=== PATIENT | female | born 1980 | race Caucasian/White ===

== ENCOUNTER 2021-08-29 23:16 | Emergency (ER) | payer OTHER ==
[~2021-08-29] VITALS: Ht 172.7 cm; Wt 95.5 kg
[2021-08-30] MEDS ORDERED: HYDR-2761 PO ×2 (00:53→01:11)
--- NOTE | 2021-08-30 00:53 | PHYS DOC ---
General Adult EDM: Chief Complaint: BACK PAIN OR INJURY HPI: HPI: Patient is a 40 year old female who presents the ED today complaining of 10 out of 10 bilateral low back pain nonradiating in nature, symptoms began today. 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 She states she has been in the vehicle driving from [place] to [place]. She states it is a 12-hour drive and at some point during the drive she was not able to see it. She states she had to lay down for the rest of the trip. She states she has had similar pain before but not as bad. Patient denies any injuries. Patient denies any loss of bowel/bladder function. (PENG BAIRD APRN) Review of Systems: Review of Systems: Constitutional: Denies fever or chills. [] GI: Denies abdominal pain, nausea, vomiting, bloody stools or diarrhea. [] : Denies dysuria. [] Musculoskeletal: Reports back pain Integument: Denies rash. [] Neurologic: Denies headache, focal weakness or sensory changes. [] Psychiatric: Denies depression or anxiety. [] (PENG BAIRD APRN) Heart Score: C/O Chest Pain: N/A Risk Factors: Risk Factors: DM, Current or recent (<one month) smoker, HTN, HLP, family history of CAD, obesity. Risk Scores: Score 0 - 3: 2.5% MACE over next 6 weeks - Discharge Home Score 4 - 6: 20.3% MACE over next 6 weeks - Admit for Clinical Observation Score 7 - 10: 72.7% MACE over next 6 weeks - Early Invasive Strategies (PENG BAIRD APRN) Physical Exam: PE: Constitutional: Well developed, well nourished, no acute distress, non-toxic appearance. [] Skin: Warm, dry, no erythema, no rash. [] Back: No tenderness, no CVA tenderness. [] Extremities: No tenderness, no cyanosis, no clubbing, ROM intact, no edema. [] Neurologic: Alert and oriented X 3, normal motor function, normal sensory function, no focal deficits noted. [] Psychologic: Affect normal, judgement normal, mood normal. [] (PENG BAIRD APRN) EKG: EKG: [] (PENG BAIRD APRN) Radiology/Procedures: Radiology/Procedures: [] (OLIPENG Morton APRN) Course & Med Decision Making: Course & Med Decision Making Pertinent Labs and Imaging studies reviewed. (See chart for details) This a 40-year-old female patient presented to the ED today complaining of back pain that began today. History of similar back pain, no known injuries. No cauda equina syndrome symptoms. Patient will be given pain relief and discharged. (PENG BAIRD APRN) Dragon Disclaimer: Dragon Disclaimer: This electronic medical record was generated, in whole or in part, using a voice recognition dictation system. (PENG BAIRD APRN) Departure Departure Impression: Primary Impression: Low back pain Qualified Codes: M54.50 - Low back pain, unspecified Disposition: HOME / SELF CARE / HOMELESS Condition: STABLE Patient Instructions: Back Pain, Adult Additional Instructions: You were evaluated in the emergency room for back pain. We highly recommend you follow-up with your doctor when you get back home. Try to apply ice or heating pad to your low back. Avoid doing strenuous activities but we encourage you to be up and walking as tolerated Scripts Cyclobenzaprine Hcl (CYCLOBENZAPRINE HCL) 10 Mg Tablet 1 TAB PO TID, #30 TAB Prov: PENG BAIRD SHAUNA 08/30/21 Hydrocodone Bit/Acetaminophen (HYDROCODONE-APAP 5-325 ) 1 Tab Tablet 1 TAB PO PRN Q6HRS PRN for PAIN, #14 TAB 0 Refills Prov: KRYSTINPENG العلي Selene VILLATORO 08/30/21 Attending Signature Attending Signature I have reviewed the PA/MOTOR VEHICLES INSPECTOR's note and plan of care. I was available for consultation as needed during the patient's visit in the emergency department. I agree with the clinical impression, plan, and disposition. (MEDARDO MOLINA DO) PENG BAIRD APRN Aug 30, 2021 00:53 MEDARDO MOLINA DO Aug 30, 2021 06:14
[2021-08-30] MEDS ORDERED: CYCL10TA19 PO (01:11)
[2021-08-30] MEDS ORDERED: diazePAM 5 MG TABLET PO ONE (01:30)
[2021-08-30] MEDS ORDERED: MORPHINE SULFATE 4 MG/ML INJ. IM ONE (01:30)
[2021-08-30 02:13] VITALS: BP 120/54
[2021-08-30] MEDS ORDERED: FAMOTIDINE 20 MG TABLET. PO ONE (03:00)
[2021-08-30] MEDS ORDERED: ONDANSETRON ODT 4 MG TAB.RAPDIS. PO ONE (03:00)
[2021-08-30] MEDS ORDERED: HYDROmorphone 2 MG/ML VIAL IM ONE (03:00)
== END 2021-08-30 03:25 | disposition home or self-care (01) ==
LOC: ER 23:16
DX: M54.50 Low back pain, unspecified (principal)
CPT/HCPCS: 96372; 99285; J1170; J2270